=== PATIENT | female | born 1955 | race Caucasian/White ===

== ENCOUNTER 2016-03-15 21:28 | Emergency (ER) | payer OTHER ==
[~2016-03-15] VITALS: Ht 157.5 cm; Wt 55.9 kg
[~2016-03-15 21:28] MED LIST: AMOX-366 PO; ASPI-973 PO; CARB1TAB37 PO; CRB100TCR PO; CYCL10TA9 PO; ENTA200T PO; FAMO20TA4 PO; LAMO100T PO; LAMO150T2 PO; LORA-302 PO; LVCR25100 PO; MENT113G5 TP; NAPR375T4 PO; NITR0.4T SL; PRIM50TA PO; ROPI0.5T2 PO
[2016-03-15 21:39] VITALS: BP 110/66; PULSE 76; RESP 18; O2SAT 97
--- NOTE | 2016-03-15 21:58 | ED.REPORT ---
HPI-Extremity Problem Lower Date of Service Mar 15, 2016 ED Provider: Senia Mullins MD Pt is a 60 y/o female w/ a hx of Parkinson's disease, psychiatric illnesses, presenting to the ED via EMS c/o bilateral lower extremity cramping onset 1 week ago. She has experienced similar symptoms before but not at this severity. The pain is causing her to be weak and she believes she is a fall risk. She c/o associated left leg numbness. She denies nausea, vomiting, fever, chills, cough , dysuria, change in lower extremity edema, rash, speech change, vision change. She has been using Flexeril at home with no relief. Nursing Notes Stated Complaint: LEG CRAMPS Chief Complaint: General Complaint Nursing Notes Reviewed: Yes Allergies: Coded Allergies: fluphenazine (Verified Allergy, Mild, 09/18/15) Haloperidol Lactate (Verified Allergy, Unknown, 09/18/15) Phenothiazines (Verified Allergy, Unknown, 09/18/15) Sulfa (Sulfonamide Antibiotics) (Verified Allergy, Unknown, 09/18/15) haloperidol (Verified Allergy, Unknown, 09/18/15) thioridazine (Verified Allergy, Unknown, 09/18/15) thiothixene (Verified Allergy, Unknown, 09/18/15) Scheduled Amoxicillin/Clav K 875-125 mg (Augmentin 875-125 mg) 1 Each Tablet 1 TABLET PO BID Aspirin (Aspirin) 81 Mg Tablet 81 MG PO da Carbamazepine (Tegretol Xr) 100 Mg Tber 200 MG PO Q12H Carbidopa/Levodopa 25-100 mg (Sinemet 25-100 mg) 1 Each Tablet 1 TABLET PO DAILYWD Carbidopa/Levodopa ER 50-200 mg (Carbidopa/Levodopa ER 50-200 mg) 1 Each Tablet 1 TABLET PO TID In the at AM, noon and HS Entacapone (Comtan) 200 Mg Tablet 100 MG PO QID take with carbidopa and levodopa Famotidine (Famotidine) 20 Mg Tablet 20 MG PO BID Lamotrigine (Lamictal) 100 Mg Tablet 100 MG PO QAM Lamotrigine (Lamotrigine) 150 Mg Tablet 150 MG PO HS Primidone (Mysoline) 50 Mg Tablet 50 MG PO QID Ropinirole (Ropinirole) 0.5 Mg Tablet 0.5 MG PO TID Scheduled PRN Cyclobenzaprine (Cyclobenzaprine) 10 Mg Tablet 10 MG PO TID PRN PRN Spasm Cyclobenzaprine (Cyclobenzaprine) 10 Mg Tablet 10 MG PO TID PRN PRN Spasm Lorazepam (Ativan) 0.5 Mg Tablet 0.5 MG PO HS PRN PRN For Insomnia Menthol (Bengay) 113 Gm Gel..gram. 113 GM TP PRN For Pain Naproxen (Naproxen) 375 Mg Tablet.dr 375 MG PO BID PRN PRN For Pain Nitroglycerin SL (Nitrostat) 0.4 Mg Tab.subl 0.4 MG SL Q5MIN PRN PRN For Chest Pain General Time Seen by MD: 21:54 Chief Complaint Other (Bilateral leg cramping) Hx Obtained From: Patient, EMS Arrived By: Ambulance Onset Occurred: 1 week ago Symptom Duration: Since onset Location: : Leg left: Leg right Quality: Cramping Severity: Current: Moderate Severity: Maximum: Moderate Exacerbated by: Movement Recent Healthcare: Previous diagnosis Similar Sx Previous: Yes Past Medical History Past Medical History Multi-drug resistant Escherichia coli urinary tract infection February 2013 Drug-induced Parkinson disease. History of seizure disorder. Dyslipidemia. Depression/anxiety. Bipolar disorder. Chronic back pain, with narcotic seeking behavior. Posttraumatic stress disorder. Borderline personality disorder. -previous suicide attempts and manipulative behaviors History of transient ischemic attacks. Previous left occipital infarct Migraines. Anorexia. Alleged multiple sclerosis. Per Dr. Burks's records, this is not the case. She claims to have been diagnosed by a retired neurologist myocardial infarction Reports: Atrial fibrillation Past Surgical History Reports: , Tonsillectomy Family History Mother had depression Smoking History Former Smoker Social History She is . She currently lives alone, although she use to live in a detention. She used to live with her mom, but her mom now lives at the detention at [facility]. She has be discharged from [facility] in the past with concern for manipulative behaviors. She reports being disabled all of her life due to her epilepsy. She has a 30-year-old son who also has his own medical issues too. Quit smoking in 1972, and denies any alcohol use Alcohol Use: "Social" Drug Use: Denies drug use Other Social History: Poor social support, Homeless Ambulatory Status Wheelchair Review of Systems Constitutional: Denies: Chills, Fever Musculoskeletal: Reports: Extremity pain (bilat legs), Denies: Extremity swelling Skin: Denies Rash Neurologic: Reports: Numbness, Denies: Focal weakness, Slurred speech, Unable to speak, Vision change Complete sys rev & neg: except as marked. Respiratory: Denies: Non-productive cough, Shortness of breath Cardiovascular: Denies: Chest pain GI: Denies: Abdominal pain, Nausea, Vomiting Female: Denies: Dysuria Physical Exam Initial Vital Signs Vital Signs (First) Date Time Temp Pulse Resp B/P Pulse Ox O2 Delivery O2 Flow Rate FiO2 03/15/16 21:39 36.7 76 18 110/66 97 Room Air Initial VS: Reviewed, Vital signs normal Head / Eyes: Atraumatic, Normocephalic, PERRL ENT: Mucous membranes moist, Conjunctiva normal, No scleral icterus Neck: Supple, Full range of motion Respiratory: Breath sounds normal, Clear to auscultation, No respiratory distress Cardiovascular: Regular rate & rhythm, Heart sounds normal, Intact distal pulses Abdomen / GI: Soft, Non-tender, No guarding, No rebound, No distention Upper Extremities: Vascular intact, Neuro intact, No swelling, No tenderness Skin: Warm, Dry, No cyanosis Psychiatric: Mood/affect normal, Behavior normal, Normal thought content Lower Extremity / Pelvis / MS: Atraumatic, Inspection NL, Full range of motion , No swelling, Non-tender, No deformity, Neurologic intact, Vascular intact Neurologic: Oriented X3, Speech NL, No motor deficits, No sensory deficits, Memory NL Baseline tremor Interpretation & Diagnostics Lab Results Interpretation Result Diagram: 03/15/16224603/15/162246 Test 03/15/16 22:47 03/15/16 23:54 White Blood Count 3.3th/mm3 (3.8-10.1) Red Blood Count 3.71mil/mm3 (3.90-5.20) Hemoglobin 12.1g/dL (12.0-15.6) Hematocrit 37.1% (35.0-46.0) Mean Corpuscular Volume 100.0fL (81-100) Mean Corpuscular Hemoglobin 32.6pg (27.0-35.0) Mean Corpuscular Hemoglobin Concent 32.6% (32.0-37.0) Red Cell Distribution Width 11.8% (12.3-15.4) Platelet Count 308bil/L (150-400) Neutrophils (%) (Auto) 56.3% (40-74) Lymphocytes (%) (Auto) 28.6% (14-46) Monocytes (%) (Auto) 13.3% (4-12) Eosinophils (%) (Auto) 0.9% (0-5) Basophils (%) (Auto) 0.9% (0-3) Sodium Level 138mEq/L (134-144) Potassium Level 4.1mEq/L (3.5-5.2) Chloride Level 102mEq/L (97-108) Carbon Dioxide Level 26mmol/L (18-29) Blood Urea Nitrogen 23mg/dL (6-24) Creatinine 0.72mg/dL (0.57-1.00) Estimat Glomerular Filtration Rate 119mL/min (>59) Glucose Level 100mg/dL (60-99) Calcium Level 8.7mg/dL (8.5-10.1) Total Bilirubin 0.2mg/dL (0.0-1.2) Aspartate Amino Transf (AST/SGOT) 10U/L (0-50) Alanine Aminotransferase (ALT/SGPT) < 5U/L (0-32) Alkaline Phosphatase 61U/L (25-165) Total Protein 6.8g/dL (6.4-8.4) Albumin 4.2g/dL (3.4-5.0) Hold Benítez Top Tube Received (Received) Urine Color Yellow (YELLOW) Urine Appearance Clear (CLEAR,HAZY) Urine pH 7.5 (5.0-8.0) Urine Specific [place] 1.010 (1.003-1.035) Urine Protein Negativemg/dL (NEG,TRACE) Urine Glucose (UA) Negativemg/dL (NEGATIVE) Urine Ketones Negativemg/dL (NEGATIVE) Urine Occult Blood Negative (NEGATIVE) Urine Nitrite Negative (NEGATIVE) Urine Bilirubin Negative (NEGATIVE) Urine Urobilinogen Normalmg/dL (NORMAL) Urine Leukocyte Esterase Moderate (NEGATIVE) Urine RBC 0-2/hpf (0-2) Urine WBC 11-50/hpf (0-5) Urine Epithelial Cells Moderate/hpf (NONE-MOD) Urine Crystals None seen (NONE SEEN) Urine Bacteria Few/hpf (NONE-FEW) Urine Hyaline Casts None/lpf (NONE) Urine Granular Casts None seen (NONE SEEN) Urine Waxy Casts None seen (NONE SEEN) Urine Red Blood Cell Casts None seen (NONE SEEN) Urine White Blood Cell Casts None seen (NONE SEEN) Urine Mucus None seen (None Seen) Urine Trichomonas None seen (NONE SEEN) Urine Yeast None (NONE SEEN) Urinalysis Comment None Urine Culture Reflexed Indicated Re-Eval/Medical Decision Med Decision/Clinical Course 60-year-old female with past medical history of Parkinson's disease, MS, psychiatric disorder here with muscle cramping. Differential diagnosis includes but is not limited to drug seeking behavior versus electrolyte abnormality versus paresthesias versus neuropathy. Patient's CBC is remarkable for mild leukopenia, which appears to be patient's baseline. Her CMP is normal without evidence of electrolyte abnormality. During patient's stay, she was very demanding, asked me to come into the room several times for very menial tasks, and was rather abusive to the nurses in the department. She is also requesting that we admit her because caregivers at her home are unable to care for her completely. At this time, I have explained to her that that is not a reason for me to admit her to the hospital. She has been given Valium in the emergency department for her muscle spasm, and is amenable to discharge at this time with follow-up with her primary care physician. Re-Evaluation/Progress : Time of Eval: 23:59 Re-Evaluation/Progress Note: Pt rechecked. Informed pt of plan for treatment. Pt understands and agrees with plan for treatment. F/U and RTER warnings given. All questions addressed. Counseled Regarding: Diagnosis, Lab results, Need for follow-up, When/why to return to ED Discharge & Departure Disposition: Home Discharge Condition All VS Reviewed: Yes Condition: Stable Referrals: Afsaneh Tobar MD (PCP) Scribe Attestation Portions of this note were transcribed by Obie Cox. I, Dr. Mullins personally performed the history, physical exam and medical decision-making; I reviewed and confirmed the accuracy of the information in the transcribed note. Signed by Kristy Valdivia, 03/15/16 - [phone] copies to: Afsaneh Tobar MD, Rebecca A MD Mar 15, 2016 21:58 OBIE COX Mar 15, 2016 22:04
[2016-03-15 23:00] LABS: BASOPHILS % (AUTO) 0.9 % (0-3); EOSINOPHILS % (AUTO) 0.9 % (0-5); MONOCYTES % (AUTO) 13.3 % (4-12); Mean Corpuscular Hemoglobin 32.6 pg (27.0-35.0); NEUTROPHILS % (AUTO) 56.3 % (40-74); Platelet Count 308 bil/L (150-400)
[2016-03-16 00:27] LABS: APPEARANCE,URINE CLEAR (CLEAR,HAZY); COLOR,URINE YELLOW (YELLOW); OCCULT BLOOD,URINE NEGATIVE (NEGATIVE); PH,URINE 7.5 (5.0-8.0); UROBILINOGEN,URINE NORMAL (NORMAL)
[2016-03-16 00:32] VITALS: BP 99/68; PULSE 91; RESP 16; O2SAT 100
== END 2016-03-16 00:33 | disposition home or self-care (01) ==
LOC: SED 21:28
DX: R82.71 Bacteriuria (principal); I48.91 Unspecified atrial fibrillation; Z79.82 Long term (current) use of aspirin; Z87.891 Personal history of nicotine dependence; Z88.2 Allergy status to sulfonamides; Z88.8 Allergy status to other drugs, medicaments and biological substances; Z87.440 Personal history of urinary (tract) infections; Z86.19 Personal history of other infectious and parasitic diseases; Z86.73 Personal history of transient ischemic attack (TIA), and cerebral infarction without residual deficits
CPT/HCPCS: 36415; 80053; 81000; 85025; 87086; 96374; 96375; 99284; J3360

== ENCOUNTER 2016-04-09 15:25 | Emergency (ER) | payer OTHER ==
[~2016-04-09] VITALS: Ht 157.5 cm; Wt 56.8 kg
[2016-04-09 15:33] VITALS: BP 142/76; PULSE 82; RESP 18; O2SAT 93
--- NOTE | 2016-04-09 16:31 | DRSVH ---
PROCEDURE: X-RAY LEFT KNEE, ONE OR TWO VIEWS ([id number]) INDICATIONS: FALL TECHNIQUE: 2 views of the knee were acquired. COMPARISON: [facility], , KNEE 1 OR 2VW (LT), 02/14/2013, 13:26. FINDINGS: Bones: No fractures or dislocations. No suspicious bony lesions. Soft tissues: No joint effusion. No suspicious soft tissue calcifications. IMPRESSION: No visualized acute fracture or dislocation. However, if clinical concern and/or pain pe rsist, short interval imaging followup in 7-10 days is recommended, as occult injury cannot be defini tively excluded. Dictated by: Chantale Jarvis M.D. on 04/09/2016 at 16:29 Approved by: Chantale Jarvis M.D. on 04/09/2016 at 16:29
--- NOTE | 2016-04-09 17:43 | ED.REPORT ---
HPI-Trauma Minor / Fall Date of Service Apr 09, 2016 ED Provider: Magan Gr MD This is a 60 year old female presenting to the emergency department complaining of left knee pain that began just prior to arrival after a GLF. Reports diffuse myalgias. Denies headache, neck pain, change LOC, nausea, vomiting, or any other injuries at this time. Nursing Notes Stated Complaint: GENERAL PAIN Chief Complaint: General Complaint Nursing Notes Reviewed: Yes Allergies: Coded Allergies: fluphenazine (Verified Allergy, Mild, 09/18/15) Haloperidol Lactate (Verified Allergy, Unknown, 09/18/15) Phenothiazines (Verified Allergy, Unknown, 09/18/15) Sulfa (Sulfonamide Antibiotics) (Verified Allergy, Unknown, 09/18/15) haloperidol (Verified Allergy, Unknown, 09/18/15) thioridazine (Verified Allergy, Unknown, 09/18/15) thiothixene (Verified Allergy, Unknown, 09/18/15) Scheduled Amoxicillin/Clav K 875-125 mg (Augmentin 875-125 mg) 1 Each Tablet 1 TABLET PO BID Aspirin (Aspirin) 81 Mg Tablet 81 MG PO da Carbamazepine (Tegretol Xr) 100 Mg Tber 200 MG PO Q12H Carbidopa/Levodopa 25-100 mg (Sinemet 25-100 mg) 1 Each Tablet 1 TABLET PO DAILYWD Carbidopa/Levodopa ER 50-200 mg (Carbidopa/Levodopa ER 50-200 mg) 1 Each Tablet 1 TABLET PO TID In the at AM, noon and HS Entacapone (Comtan) 200 Mg Tablet 100 MG PO QID take with carbidopa and levodopa Famotidine (Famotidine) 20 Mg Tablet 20 MG PO BID Lamotrigine (Lamictal) 100 Mg Tablet 100 MG PO QAM Lamotrigine (Lamotrigine) 150 Mg Tablet 150 MG PO HS Primidone (Mysoline) 50 Mg Tablet 50 MG PO QID Ropinirole (Ropinirole) 0.5 Mg Tablet 0.5 MG PO TID Scheduled PRN Cyclobenzaprine (Cyclobenzaprine) 10 Mg Tablet 10 MG PO TID PRN PRN Spasm Cyclobenzaprine (Cyclobenzaprine) 10 Mg Tablet 10 MG PO TID PRN PRN Spasm Lorazepam (Ativan) 0.5 Mg Tablet 0.5 MG PO HS PRN PRN For Insomnia Menthol (Bengay) 113 Gm Gel..gram. 113 GM TP PRN For Pain Naproxen (Naproxen) 375 Mg Tablet.dr 375 MG PO BID PRN PRN For Pain Nitroglycerin SL (Nitrostat) 0.4 Mg Tab.subl 0.4 MG SL Q5MIN PRN PRN For Chest Pain General Time Seen by MD: 17:34 Chief Complaint Fall Hx Obtained From: Patient Arrived By: Walk-in Onset Occurred: Just prior to arrival Symptom Duration: Since onset Severity: Current: Mild Pertinent Negative: Pt denies other symptoms Recent Healthcare: No recent doctor visit, No recent hospitalization Similar Sx Previous: No Past Medical History Past Medical History Multi-drug resistant Escherichia coli urinary tract infection February 2013 Drug-induced Parkinson disease. History of seizure disorder. Dyslipidemia. Depression/anxiety. Bipolar disorder. Chronic back pain, with narcotic seeking behavior. Posttraumatic stress disorder. Borderline personality disorder. -previous suicide attempts and manipulative behaviors History of transient ischemic attacks. Previous left occipital infarct Migraines. Anorexia. Alleged multiple sclerosis. Per Dr. Burks's records, this is not the case. She claims to have been diagnosed by a retired neurologist myocardial infarction Reports: Atrial fibrillation Past Surgical History Reports: , Tonsillectomy Family History Mother had depression Smoking History Former Smoker Social History She is . She currently lives alone, although she use to live in a fdc. She used to live with her mom, but her mom now lives at the fdc at [facility]. She has be discharged from [facility] in the past with concern for manipulative behaviors. She reports being disabled all of her life due to her epilepsy. She has a 30-year-old son who also has his own medical issues too. Quit smoking in 1972, and denies any alcohol use Alcohol Use: "Social" Drug Use: Denies drug use Other Social History: Poor social support, Homeless Ambulatory Status Wheelchair Review of Systems Constitutional: Denies: Chills, Fever Musculoskeletal: Reports: Extremity pain Neurologic: Denies: Headache, Lightheaded, Numbness Complete sys rev & neg: except as marked. Physical Exam Initial Vital Signs Vital Signs (First) Date Time Temp Pulse Resp B/P Pulse Ox O2 Delivery O2 Flow Rate FiO2 04/09/16 15:33 37.1 82 18 142/76 93 Room Air Initial VS: Reviewed Head / Eyes: Atraumatic, Normocephalic, PERRL ENT: Mucous membranes moist, Conjunctiva normal, No scleral icterus Respiratory: Breath sounds normal, Clear to auscultation, No respiratory distress Cardiovascular: Regular rate & rhythm, Heart sounds normal, Intact distal pulses Abdomen / GI: Soft, Non-tender, No guarding, No rebound, No distention Extremities: Vascular intact, Neuro intact, No swelling, No tenderness Skin: Warm, Dry, No cyanosis Neurologic: Alert, Oriented, Nonfocal Psychiatric: Mood/affect normal, Behavior normal, Normal thought content General/Constitutional: Awake, Alert Neck: Full range of motion Lower Extremity / Pelvis / MS: Full range of motion, No swelling, Neurologic intact, Vascular intact Interpretation & Diagnostics Interpretation & Diagnostics: LEFT KNEE X-RAY IMPRESSION: No visualized acute fracture or dislocation. However, if clinical concern and/or pain persist, short interval imaging followup in 7-10 days is recommended, as occult injury cannot be definitively excluded. Dictated by: Chantale Jarvis M.D. on 04/09/2016 at 16:29 Approved by: Chantale Jarvis M.D. on 04/09/2016 at 16:29 Lab Results Interpretation Test 04/09/16 16:08 Hold Urine Received (Received) Re-Eval/Medical Decision Med Decision/Clinical Course 60-year-old female presented status post fall onto left knee. Her left knee x-ray is normal. She has no other acute complaints. Discharged home with return precautions. Counseled Regarding: Diagnosis, Lab results, Need for follow-up, When/why to return to ED Discharge & Departure Impression: Primary Impression: Knee pain, left Chronicity: acute Qualified Code: M25.562 - Pain in left knee Disposition: Home Discharge Condition All VS Reviewed: Yes Condition: Stable Additional Instructions: Follow-up with your primary care provider. Return to the emergency department for any new or worsening symptoms Referrals: Afsaneh Tobar MD (PCP) Scribe Attestation Portions of this note were transcribed by Dusty Stover. I, Dr. Gr personally performed the history, physical exam and medical decision-making; I reviewed and confirmed the accuracy of the information in the transcribed note. Signed by: alexus Ruiz. 04/09/2016, 17:00. Magan Gr MD Apr 09, 2016 17:42 DUSTY STOVER Apr 09, 2016 17:47
== END 2016-04-09 18:30 | disposition home or self-care (01) ==
LOC: SED 15:25
DX: M25.562 Pain in left knee (principal); W18.30XA Fall on same level, unspecified, initial encounter; Y93.89 Activity, other specified; Y92.9 Unspecified place or not applicable; Y99.8 Other external cause status; I25.2 Old myocardial infarction; Z86.73 Personal history of transient ischemic attack (TIA), and cerebral infarction without residual deficits; Z87.891 Personal history of nicotine dependence; Z86.59 Personal history of other mental and behavioral disorders; Z79.82 Long term (current) use of aspirin; Z88.2 Allergy status to sulfonamides; Z88.8 Allergy status to other drugs, medicaments and biological substances

== ENCOUNTER 2016-04-30 11:31 | Emergency (ER) | payer OTHER ==
[~2016-04-30] VITALS: Ht 157.5 cm; Wt 56.8 kg
[2016-04-30 11:37] VITALS: BP 119/67; PULSE 104; RESP 17; O2SAT 98
--- NOTE | 2016-04-30 12:32 | ED.REPORT ---
HPI-Trauma Minor / Fall Date of Service Apr 30, 2016 ED Provider: Dayne Guy MD Patient is a 60 year old female with a history of Parkinson's who presents to the ED via EMS from [facility] s/p a ground level fall from her bed today. She hit her head on a radiator and now presents with double vision and dizziness. Associated symptoms include R arm and shoulder pain. She denies bleeding, headache, numbness, or any other symptoms. Patient reports she is looking for a prescription for different pain medication since hers are "not working". When denied another prescription for pain medications she asked, "not even for a week?" Patient is very persistent about getting prescription pain medications. Nursing Notes Stated Complaint: GLF Chief Complaint: Multiple Trauma/Fall Nursing Notes Reviewed: Yes ([facility] not [facility]) Allergies: Coded Allergies: fluphenazine (Verified Allergy, Mild, 09/18/15) Haloperidol Lactate (Verified Allergy, Unknown, 09/18/15) Phenothiazines (Verified Allergy, Unknown, 09/18/15) Sulfa (Sulfonamide Antibiotics) (Verified Allergy, Unknown, 09/18/15) haloperidol (Verified Allergy, Unknown, 09/18/15) thioridazine (Verified Allergy, Unknown, 09/18/15) thiothixene (Verified Allergy, Unknown, 09/18/15) Scheduled Amoxicillin/Clav K 875-125 mg (Augmentin 875-125 mg) 1 Each Tablet 1 TABLET PO BID Aspirin (Aspirin) 81 Mg Tablet 81 MG PO da Carbamazepine (Tegretol Xr) 100 Mg Tber 200 MG PO Q12H Carbidopa/Levodopa 25-100 mg (Sinemet 25-100 mg) 1 Each Tablet 1 TABLET PO DAILYWD Carbidopa/Levodopa ER 50-200 mg (Carbidopa/Levodopa ER 50-200 mg) 1 Each Tablet 1 TABLET PO TID In the at AM, noon and HS Entacapone (Comtan) 200 Mg Tablet 100 MG PO QID take with carbidopa and levodopa Famotidine (Famotidine) 20 Mg Tablet 20 MG PO BID Lamotrigine (Lamictal) 100 Mg Tablet 100 MG PO QAM Lamotrigine (Lamotrigine) 150 Mg Tablet 150 MG PO HS Primidone (Mysoline) 50 Mg Tablet 50 MG PO QID Ropinirole (Ropinirole) 0.5 Mg Tablet 0.5 MG PO TID Scheduled PRN Cyclobenzaprine (Cyclobenzaprine) 10 Mg Tablet 10 MG PO TID PRN PRN Spasm Cyclobenzaprine (Cyclobenzaprine) 10 Mg Tablet 10 MG PO TID PRN PRN Spasm Lorazepam (Ativan) 0.5 Mg Tablet 0.5 MG PO HS PRN PRN For Insomnia Menthol (Bengay) 113 Gm Gel..gram. 113 GM TP PRN For Pain Naproxen (Naproxen) 375 Mg Tablet.dr 375 MG PO BID PRN PRN For Pain Nitroglycerin SL (Nitrostat) 0.4 Mg Tab.subl 0.4 MG SL Q5MIN PRN PRN For Chest Pain General Time Seen by MD: 12:03 Chief Complaint Fall Hx Obtained From: Patient Arrived By: Ambulance Past Medical History Past Medical History Multi-drug resistant Escherichia coli urinary tract infection February 2013 Drug-induced Parkinson disease. History of seizure disorder. Dyslipidemia. Depression/anxiety. Bipolar disorder. Chronic back pain, with narcotic seeking behavior. Posttraumatic stress disorder. Borderline personality disorder. -previous suicide attempts and manipulative behaviors History of transient ischemic attacks. Previous left occipital infarct Migraines. Anorexia. Alleged multiple sclerosis. Per Dr. Burks's records, this is not the case. She claims to have been diagnosed by a retired neurologist myocardial infarction Seizures Reports: Atrial fibrillation Past Surgical History Reports: , Tonsillectomy Family History Mother had depression Smoking History Former Smoker Social History She is . She currently lives alone, although she use to live in a assisted. She used to live with her mom, but her mom now lives at the assisted at [facility]. She has be discharged from [facility] in the past with concern for manipulative behaviors. She reports being disabled all of her life due to her epilepsy. She has a 30-year-old son who also has his own medical issues too. Quit smoking in 1972, and denies any alcohol use. Multiple previous suicide attempts. Alcohol Use: "Social" Drug Use: Denies drug use Other Social History: Poor social support, Homeless Ambulatory Status Wheelchair Review of Systems Eyes: Reports: Discharge bilateral Musculoskeletal: Reports: Extremity pain (R arm), Joint pain (R shoulder ) Neurologic: Reports: Dizziness, Denies: Headache, Numbness Complete sys rev & neg: except as marked. Physical Exam Initial Vital Signs Vital Signs (First) Date Time Temp Pulse Resp B/P Pulse Ox O2 Delivery O2 Flow Rate FiO2 04/30/16 11:37 36.9 104 17 119/67 98 Room Air Initial VS: Reviewed, Vital signs normal (heart rate 104) General/Constitutional: Awake, Alert, Well developed, Not toxic appearing Well known through multiple visits. Neck: Atraumatic, Supple Head / Eyes: Atraumatic, Normocephalic No hematoma, abraision, laceration, or bleeding on the scalp Respiratory / Chest: Breath sounds NL, Breath sounds = bilat, No respiratory distress Cardiovascular: Heart rate NL Abdomen: Soft, Non-tender Back: Atraumatic, Inspection NL, Non-tender Upper Extremity / MS: Full range of motion Minor bruise at R proximal humerous. No step off. Not tender over the AC joint. Preserved but sore ROM. Good radial pulse. Lower Extremity / Pelvis / MS: Full range of motion R lateral thigh bruise with intact internal and external rotation. Flexion and extention nL Neurologic: Oriented X3, Speech NL No focal deficits Interpretation & Diagnostics X-Ray Interpretation Xray Interpretation: IMPRESSION: No fracture Dictated by: Panchito Salas M.D. on 04/30/2016 at 13:32 Approved by: Panchito Salas M.D. on 04/30/2016 at 13:34 Study Performed: R humerus, 2 views X-Ray Ordered: Humerus right Interpretation / Wet Read by: Interpret - Radiologist CT Head Interpretation CT BRAIN: IMPRESSION: No acute intracranial process Dictated by: Panchito Salas M.D. on 04/30/2016 at 14:02 Approved by: Panchito Salas M.D. on 04/30/2016 at 14:03 Study: Head CT no contrast Interpretation / Wet Read by: Interpret - Radiologist Re-Eval/Medical Decision Med Decision/Clinical Course This is a 60-year-old female well-known to me from multiple previous visits. She presents with a chief complaint she rolled out of bed and fell and hit her head, right side of her head is sore, she landed on her right arm and her right arm is sore. She is very demanding individual with an extensive history of a personality disorder. Interestingly the immediate focus of her visit is repeated requests for pain medications. On exam she is awake alert answering questions. There is no overt bruising abrasions or head wounds evident on exam. She does have a contusion on the upper arm or ports is sore-although there is not clinical evidence of a raghu fracture dislocation. She is a minor bruise in the right thigh, but is normal range of motion no clinical evidence of fracture. CT the head, x-ray of the arm is negative. I did provide a dose of Toradol, a dose of Tylenol, and an patient's routine dose of Ultram. At each interval the patient asked for additional narcotics, but I do not think those are appropriate. The patient is prescribed Tylenol, prescribed diclofenac, and prescribed tramadol already. I did FEN give a dose of the patient's Flexeril as well. But I do not think that additional opiates or change in the pain medication regimen-particularly given the absence of objective medical indications-is appropriate. Explained to the patient. She is being discharged back to the nursing facility in stable condition Source of Hx: Old records Re-Evaluation/Progress : Time of Eval: 14:32 Re-Evaluation/Progress Note: Discussed imaging results and plan for discharge. Patient understands and agrees with plan. All questions addressed at this time. Counseled Regarding: Diagnosis, Lab results, Need for follow-up, When/why to return to ED Discharge & Departure Impression: Primary Impression: Fall from ground level Additional Impressions: Blunt head trauma Encounter type: initial encounter Qualified Code: S09.8XXA - Other specified injuries of head, initial encounter Contusion of right arm Encounter type: initial encounter Qualified Code: S40.021A - Contusion of right upper arm, initial encounter Disposition: Home Discharge Condition All VS Reviewed: Yes Condition: Stable Additional Instructions: 1. The CT scan of the head did not reveal any signs of trauma to the brain, or skull injury. 2. Your right arm x-ray was normal with no findings of a fracture. 3. I do not recommend increasing her pain medications or using further narcotics these medications can actually worsen the situation and increase her risk of falls. You should continue your prescribed medicines-take your diclofenac, take the Tylenol, and take that when necessary tramadol that you are currently prescribed. 4. You received a dose of Toradol, a dose of Tylenol, and a dose of tramadol in the department. 5. Continue current care 6. Follow-up with Dr. Tobar as needed Referrals: Afsaneh Tobar MD (PCP) Scribe Attestation Portions of this note were transcribed by Shahida Laureano. I, Dr. Guy personally performed the history, physical exam and medical decision-making; I reviewed and confirmed the accuracy of the information in the transcribed note. Signed by: Shahida Laureano 04/30/16, 1432 copies to: Afsaneh Tobar MD, Matthew F MD Apr 30, 2016 12:32 SHAHIDA LAUREANO Apr 30, 2016 12:38
--- NOTE | 2016-04-30 13:36 | DRSVH ---
PROCEDURE: X-RAY RIGHT HUMERUS, MINIMUM TWO VIEWS ([id number]) INDICATIONS: RIGHT UPPER EXTREMITY pain TECHNIQUE: 2 views of the humerus were acquired. COMPARISON: [facility], CR, XR HUMERUS 2VW RT, 02/21/2015, 12:45. FINDINGS: Bones: No fractures or dislocations. No suspicious bony lesions. Mild AC joint degeneration Soft tissues: No suspicious soft tissue calcifications. IMPRESSION: No fracture Dictated by: Panchito Salas M.D. on 04/30/2016 at 13:32 Approved by: Panchito Salas M.D. on 04/30/2016 at 13:34
--- NOTE | 2016-04-30 14:05 | DRSVH ---
PROCEDURE: CT BRAIN WITHOUT CONTRAST ([id number]) INDICATIONS: Trauma GOOD TECHNIQUE: Noncontrast 4.5 mm thick angled axial sections acquired from the foramen magnum to the vertex, with c oronal reformats. COMPARISON: [facility], CT, CT BRAIN WO CON, 09/18/2015, 18:00. FINDINGS: Image quality: Excellent. CSF spaces: Basal cisterns are patent. No extra-axial fluid collections. The ventricles are symmet radha in size and shape. Brain: No intracranial bleeds or masses. There is cerebral volume loss for age, with resultant vent ricular and sulcal prominence. There are periventricular and deep white matter chronic small vessel ischemic changes. There is intracranial internal carotid artery atherosclerosis. Skull and face: Calvarium and visualized facial bones appear intact, without suspicious lesions. Sinuses: Visualized sinuses and mastoids are clear. IMPRESSION: No acute intracranial process Dictated by: Panchito Salas M.D. on 04/30/2016 at 14:02 Approved by: Panchito Salas M.D. on 04/30/2016 at 14:03
== END 2016-04-30 15:30 | disposition home or self-care (01) ==
LOC: EDBD 11:31 → SED 11:31
DX: S09.8XXA Other specified injuries of head, initial encounter (principal); S40.021A Contusion of right upper arm, initial encounter; W06.XXXA Fall from bed, initial encounter; Y93.89 Activity, other specified; Y99.8 Other external cause status; Y92.122 Bedroom in nursing home as the place of occurrence of the external cause; I25.2 Old myocardial infarction; R56.9 Unspecified convulsions; I48.91 Unspecified atrial fibrillation; G20 Parkinson's disease; E78.5 Hyperlipidemia, unspecified; G89.29 Other chronic pain; Z87.891 Personal history of nicotine dependence; Z79.82 Long term (current) use of aspirin; Z88.2 Allergy status to sulfonamides; Z88.8 Allergy status to other drugs, medicaments and biological substances

== ENCOUNTER 2016-05-10 04:41 | Emergency (ER) | payer OTHER ==
[2016-05-10 04:44] VITALS: BP 107/73; PULSE 99; RESP 18; O2SAT 98
[2016-05-10 05:31] LABS: APPEARANCE,URINE CLEAR (CLEAR,HAZY); COLOR,URINE YELLOW (YELLOW); OCCULT BLOOD,URINE NEGATIVE (NEGATIVE); UROBILINOGEN,URINE NORMAL (NORMAL)
--- NOTE | 2016-05-10 06:18 | ED.REPORT ---
HPI-General Illness Date of Service May 10, 2016 ED Provider: Trevon Hicks MD 60 year old female with a history of chronic back pain with narcotic seeking behavior, drug-induced Parkinson disease, borderline personality disorder, and PTSD presents to the ER via EMS from [facility] assisted living facility due to right hip pain and loss of sensation of the lower extremities status post mechanical ground level fall while transferring from her bed to a commode, requesting admission. She also reports falling last week, with residual left forearm pain. Patient denies any head/neck trauma, LOC, or other injuries secondary to the falls. Nursing notes indicate that the patient was recently diagnosed with UTI and is currently on a course of Bactrim. Urine culture from March 15, 2015: No growth. Nursing Notes Stated Complaint: CONFUSION Chief Complaint: General Complaint Nursing Notes Reviewed: Yes Allergies: Coded Allergies: fluphenazine (Verified Allergy, Mild, 09/18/15) Haloperidol Lactate (Verified Allergy, Unknown, 09/18/15) Phenothiazines (Verified Allergy, Unknown, 09/18/15) Sulfa (Sulfonamide Antibiotics) (Verified Allergy, Unknown, 09/18/15) haloperidol (Verified Allergy, Unknown, 09/18/15) thioridazine (Verified Allergy, Unknown, 09/18/15) thiothixene (Verified Allergy, Unknown, 09/18/15) Scheduled Amoxicillin/Clav K 875-125 mg (Augmentin 875-125 mg) 1 Each Tablet 1 TABLET PO BID Aspirin (Aspirin) 81 Mg Tablet 81 MG PO da Carbamazepine (Tegretol Xr) 100 Mg Tber 200 MG PO Q12H Carbidopa/Levodopa 25-100 mg (Sinemet 25-100 mg) 1 Each Tablet 1 TABLET PO DAILYWD Carbidopa/Levodopa ER 50-200 mg (Carbidopa/Levodopa ER 50-200 mg) 1 Each Tablet 1 TABLET PO TID In the at AM, noon and HS Entacapone (Comtan) 200 Mg Tablet 100 MG PO QID take with carbidopa and levodopa Famotidine (Famotidine) 20 Mg Tablet 20 MG PO BID Lamotrigine (Lamictal) 100 Mg Tablet 100 MG PO QAM Lamotrigine (Lamotrigine) 150 Mg Tablet 150 MG PO HS Primidone (Mysoline) 50 Mg Tablet 50 MG PO QID Ropinirole (Ropinirole) 0.5 Mg Tablet 0.5 MG PO TID Scheduled PRN Cyclobenzaprine (Cyclobenzaprine) 10 Mg Tablet 10 MG PO TID PRN PRN Spasm Cyclobenzaprine (Cyclobenzaprine) 10 Mg Tablet 10 MG PO TID PRN PRN Spasm Lorazepam (Ativan) 0.5 Mg Tablet 0.5 MG PO HS PRN PRN For Insomnia Menthol (Bengay) 113 Gm Gel..gram. 113 GM TP PRN For Pain Naproxen (Naproxen) 375 Mg Tablet.dr 375 MG PO BID PRN PRN For Pain Nitroglycerin SL (Nitrostat) 0.4 Mg Tab.subl 0.4 MG SL Q5MIN PRN PRN For Chest Pain General Time Seen by MD: 06:02 Transferred From: correction Chief Complaint Other (Fall, Right Hip Pain) Hx Obtained From: Patient Arrived By: Ambulance Sudden in Onset?: No Onset Occurred: Just prior to arrival Symptom Duration: Since onset Caused by: Accidental, Fall on ground Context: Occurred at: Home injury Location: : Hip right Quality: Painful Severity: Current: Moderate Severity: Maximum: Moderate Associated with: Reports: Numb extremities, Denies: Headache, Loss of consciousness, Neck pain Pertinent Negative: Pt denies other symptoms Past Medical History Past Medical History Multi-drug resistant Escherichia coli urinary tract infection February 2013 Drug-induced Parkinson disease. History of seizure disorder. Dyslipidemia. Depression/anxiety. Bipolar disorder. Chronic back pain, with narcotic seeking behavior. Posttraumatic stress disorder. Borderline personality disorder. -previous suicide attempts and manipulative behaviors History of transient ischemic attacks. Previous left occipital infarct Migraines. Anorexia. Alleged multiple sclerosis. Per Dr. Burks's records, this is not the case. She claims to have been diagnosed by a retired neurologist myocardial infarction Seizures Reports: Atrial fibrillation Past Surgical History Reports: , Tonsillectomy Family History Mother had depression Smoking History Former Smoker Social History She is . She currently lives alone, although she use to live in a detention. She used to live with her mom, but her mom now lives at the detention at [facility]. She has be discharged from [facility] in the past with concern for manipulative behaviors. She reports being disabled all of her life due to her epilepsy. She has a 30-year-old son who also has his own medical issues too. Quit smoking in 1972, and denies any alcohol use. Multiple previous suicide attempts. Alcohol Use: "Social" Drug Use: Denies drug use Other Social History: Poor social support, Homeless Ambulatory Status Wheelchair Review of Systems Full Review of Systems Musculoskeletal: Reports: Joint pain (Right Hip), Denies: Back pain, Lumbar pain, Neck pain, Thoracic pain Neurologic: Reports: Numbness (Lower Extremities), Denies: Headache, Syncope Complete sys rev & neg: except as marked. Physical Exam Vital Signs Vital Signs Date Time Temp Pulse Resp B/P Pulse Ox O2 Delivery O2 Flow Rate FiO2 05/10/16 10:42 101 18 99/57 96 Room Air 05/10/16 04:44 36.9 99 18 107/73 98 Room Air Initial VS: Reviewed Head / Eyes: Atraumatic, Normocephalic Neck: Supple, Non-tender, Full range of motion Abdomen / GI: Soft, Non-tender, No guarding, No rebound, No distention Skin: Warm, Dry, No cyanosis Neurologic: Alert, Oriented, Nonfocal General/Constitutional: Awake, Alert, Well developed, Well nourished Respiratory / Chest: Breath sounds NL, No respiratory distress, No rales, No rhonchi, No wheezing Cardiovascular: Heart rate NL, Regular rhythm, Heart sounds NL, Cap refill not delayed, Peripheral circulation NL Upper Extremities Upper Extremity / MS: No swelling, No deformity, Neurologic intact, Vascular intact Good external rotation of shoulders, bilaterally. Large bruise overlying the dorsal left forearm. Lower Extremity / Pelvis / MS: Full range of motion, Vascular intact Right Hip: Positive: Tenderness present... (Greater trochanter) Interpretation & Diagnostics Lab Results Interpretation Result Diagram: 05/10/16 1041 05/10/16 1041 Test 05/10/16 05:07 05/10/16 10:41 Urine Color Yellow (YELLOW) Urine Appearance Clear (CLEAR,HAZY) Urine pH 6.0 (5.0-8.0) Urine Specific [place] 1.010 (1.003-1.035) Urine Protein Negativemg/dL (NEG,TRACE) Urine Glucose (UA) Negativemg/dL (NEGATIVE) Urine Ketones Negativemg/dL (NEGATIVE) Urine Occult Blood Negative (NEGATIVE) Urine Nitrite Negative (NEGATIVE) Urine Bilirubin Negative (NEGATIVE) Urine Urobilinogen Normalmg/dL (NORMAL) Urine Leukocyte Esterase Negative (NEGATIVE) Urine RBC 0-2/hpf (0-2) Urine WBC 0-5/hpf (0-5) Urine Epithelial Cells Few/hpf (NONE-MOD) Urine Crystals None seen (NONE SEEN) Urine Bacteria None/hpf (NONE-FEW) Urine Hyaline Casts None/lpf (NONE) Urine Granular Casts None seen (NONE SEEN) Urine Waxy Casts None seen (NONE SEEN) Urine Red Blood Cell Casts None seen (NONE SEEN) Urine White Blood Cell Casts None seen (NONE SEEN) Urine Mucus None seen (None Seen) Urine Trichomonas None seen (NONE SEEN) Urine Yeast None (NONE SEEN) Urine Culture Reflexed Not indicated White Blood Count 4.3th/mm3 (3.8-10.1) Red Blood Count 3.78mil/mm3 (3.90-5.20) Hemoglobin 12.2g/dL (12.0-15.6) Hematocrit 37.7% (35.0-46.0) Mean Corpuscular Volume 99.7fL (81-100) Mean Corpuscular Hemoglobin 32.3pg (27.0-35.0) Mean Corpuscular Hemoglobin Concent 32.4% (32.0-37.0) Red Cell Distribution Width 11.9% (12.3-15.4) Platelet Count 381bil/L (150-400) Neutrophils (%) (Auto) 49.9% (40-74) Lymphocytes (%) (Auto) 34.9% (14-46) Monocytes (%) (Auto) 10.8% (4-12) Eosinophils (%) (Auto) 2.3% (0-5) Basophils (%) (Auto) 1.6% (0-3) Sodium Level 137mEq/L (134-144) Potassium Level 5.0mEq/L (3.5-5.2) Chloride Level 101mEq/L (97-108) Carbon Dioxide Level 23mmol/L (18-29) Blood Urea Nitrogen 16mg/dL (6-24) Creatinine 0.82mg/dL (0.57-1.00) Estimat Glomerular Filtration Rate 102mL/min (>59) Glucose Level 106mg/dL (60-99) Calcium Level 8.5mg/dL (8.5-10.1) Total Bilirubin 0.2mg/dL (0.0-1.2) Aspartate Amino Transf (AST/SGOT) 14U/L (0-50) Alanine Aminotransferase (ALT/SGPT) 5U/L (0-32) Alkaline Phosphatase 67U/L (25-165) Total Protein 6.0g/dL (6.4-8.4) Albumin 3.9g/dL (3.4-5.0) Re-Eval/Medical Decision Med Decision/Clinical Course The patient is not cooperative with physical therapy assessment and evaluation and her lack of participation is inconsistent with her ability to move to the commode with nursing assistance. Social work is attempting to have her placed in a higher level of care but if this fails she will go back to [facility]. Source of Hx: Old records Time of Eval: 09:57 Re-Evaluation/Progress Note: Raul Piper, director of patient's assisted living facility is now present in the department. He states that the patient will not be able to return to their facility. Time of Eval: 10:25 Re-Evaluation/Progress Note: Patient is tearful. Updated patient on the plan of care. Discussed conversation with Raul Piper and plan to discharge back to her assisted living facility. Consultation : Call Returned at: 14:29 Note: Called Hina, patient's sister, to update her on the plan of care. Discharge & Departure Shift Change Sign-Out Patient Care Transferred: Yes Discussed Complaint(s): Yes Primary Impression: Acute situational disturbance Discharge Condition All VS Reviewed: Yes Referrals: Afsaneh Tobar MD (PCP) Care Transferred to: Dr. Medeiros Care Transferred at: 15:00 Kristy Attestation Portions of this note were transcribed by Donal Rogel. I, Dr. Hicks, personally performed the history, physical exam and medical decision-making; I reviewed and confirmed the accuracy of the information in the transcribed note. Signed by: Kristy Austin, 05/10/2016 and 14:34 copies to: Afsaneh Tobar MD, Kirk H MD May 10, 2016 06:18 DONAL ROGEL May 10, 2016 06:26
[2016-05-10 10:42] VITALS: BP 99/57; PULSE 101; RESP 18; O2SAT 96
[2016-05-10 10:52] LABS: BASOPHILS % (AUTO) 1.6 % (0-3); EOSINOPHILS % (AUTO) 2.3 % (0-5); MONOCYTES % (AUTO) 10.8 % (4-12); Mean Corpuscular Hemoglobin 32.3 pg (27.0-35.0); Mean Corpuscular Volume 99.7 fL (81-100); NEUTROPHILS % (AUTO) 49.9 % (40-74); Platelet Count 381 bil/L (150-400)
--- NOTE | 2016-05-10 12:08 | NUR ---
[facility] per CONTINUOUS MINING MACHINE OPERATOR. Patient comes from [facility].
[2016-05-10 15:10] VITALS: BP 115/81; PULSE 71; RESP 17; O2SAT 91
--- NOTE | 2016-05-11 09:11 | NUR ---
Late entry note from 05/11/16: ED VEGETABLE INSPECTOR note: D/A: Pt is a 60 year old female with parkinson's disease and previous mental health treatment who presents to the ED for confusion and evaluation for UTI. Pt had been medically cleared when staff at her [facility], [facility], reported that they felt she required higher level of care. VEGETABLE INSPECTOR discussed with ED MD and biology specialist and referral was made to [facility], however ultimately as pt was considered a fall risk and required a sitter she was unable to be evaluated. VEGETABLE INSPECTOR staffed pt with VEGETABLE INSPECTOR mill platform supervisor and as pt was sent for medical complaint and she has been medically cleared she would be discharged back to her residence. VEGETABLE INSPECTOR also spoke with pt's coordinated care case maker, Stacy Oneill, who will assist in placement as needed. P: Pt medically cleared and higher level of care was pursued but unfortunately unavailable today. VEGETABLE INSPECTOR staffed pt with ED MD who is in agreement with discharge back to her current residence. KURTIS Frazier Addendum: 05/11/16 at 0915 by FELIZ CHRISTINA SS Correction, Previous note was late entry from 05/10/16 KURTIS Frazier
== END 2016-05-10 17:18 | disposition home or self-care (01) ==
LOC: SED 04:41
DX: F43.0 Acute stress reaction (principal); M25.551 Pain in right hip; W18.30XA Fall on same level, unspecified, initial encounter; Y93.89 Activity, other specified; Y92.098 Other place in other non-institutional residence as the place of occurrence of the external cause; Y99.8 Other external cause status; M79.632 Pain in left forearm; I48.91 Unspecified atrial fibrillation; G21.19 Other drug induced secondary parkinsonism; F31.9 Bipolar disorder, unspecified; Z79.82 Long term (current) use of aspirin; Z87.891 Personal history of nicotine dependence; Z88.2 Allergy status to sulfonamides; Z88.8 Allergy status to other drugs, medicaments and biological substances

== ENCOUNTER 2016-05-17 14:01 | Emergency (ER) | payer OTHER ==
[~2016-05-17] VITALS: Ht 157.5 cm; Wt 59.1 kg
[2016-05-17 14:13] VITALS: BP 101/60; PULSE 103; RESP 16; O2SAT 100
--- NOTE | 2016-05-17 17:11 | ED.REPORT ---
HPI-General Illness Date of Service May 17, 2016 ED Provider: Marky Davidson PA-C This 60-year-old female with a history of Parkinson's disease chief complaint of back spasms. She states that she came to the emergency department because "they cannot take care of me where I am living." [facility] over 25 residents. She feels she needs more personal care. She states she is unable to walk to the bathroom herself and has to crawl. She is a resident at [facility]. Discussion with our social media campaign manager reveals that she was dropped off by a employee of her [facility] who stated that they will not take her back because of behavior. She is no longer welcome there. This is thought to be against state housing laws. Social work is attempting to make arrangements for her to return to [facility] until new, suitable housing can be obtained. Nursing Notes Stated Complaint: BACK SPASM Chief Complaint: Back Pain or Injury Nursing Notes Reviewed: Yes Allergies: Coded Allergies: fluphenazine (Verified Allergy, Mild, 05/17/16) Haloperidol Lactate (Verified Allergy, Unknown, 05/17/16) Phenothiazines (Verified Allergy, Unknown, 05/17/16) Sulfa (Sulfonamide Antibiotics) (Verified Allergy, Unknown, 05/17/16) haloperidol (Verified Allergy, Unknown, 05/17/16) thioridazine (Verified Allergy, Unknown, 05/17/16) thiothixene (Verified Allergy, Unknown, 05/17/16) Scheduled Amoxicillin/Clav K 875-125 mg (Augmentin 875-125 mg) 1 Each Tablet 1 TABLET PO BID Aspirin (Aspirin) 81 Mg Tablet 81 MG PO da Carbamazepine (Tegretol Xr) 100 Mg Tber 200 MG PO Q12H Carbidopa/Levodopa 25-100 mg (Sinemet 25-100 mg) 1 Each Tablet 1 TABLET PO DAILYWD Carbidopa/Levodopa ER 50-200 mg (Carbidopa/Levodopa ER 50-200 mg) 1 Each Tablet 1 TABLET PO TID In the at AM, noon and HS Entacapone (Comtan) 200 Mg Tablet 100 MG PO QID take with carbidopa and levodopa Famotidine (Famotidine) 20 Mg Tablet 20 MG PO BID Lamotrigine (Lamictal) 100 Mg Tablet 100 MG PO QAM Lamotrigine (Lamotrigine) 150 Mg Tablet 150 MG PO HS Primidone (Mysoline) 50 Mg Tablet 50 MG PO QID Ropinirole (Ropinirole) 0.5 Mg Tablet 0.5 MG PO TID Scheduled PRN Cyclobenzaprine (Cyclobenzaprine) 10 Mg Tablet 10 MG PO TID PRN PRN Spasm Cyclobenzaprine (Cyclobenzaprine) 10 Mg Tablet 10 MG PO TID PRN PRN Spasm Lorazepam (Ativan) 0.5 Mg Tablet 0.5 MG PO HS PRN PRN For Insomnia Menthol (Bengay) 113 Gm Gel..gram. 113 GM TP PRN For Pain Naproxen (Naproxen) 375 Mg Tablet.dr 375 MG PO BID PRN PRN For Pain Nitroglycerin SL (Nitrostat) 0.4 Mg Tab.subl 0.4 MG SL Q5MIN PRN PRN For Chest Pain General Time Seen by MD: 16:45 Chief Complaint Back pain Past Medical History Past Medical History Multi-drug resistant Escherichia coli urinary tract infection February 2013 Drug-induced Parkinson disease. History of seizure disorder. Dyslipidemia. Depression/anxiety. Bipolar disorder. Chronic back pain, with narcotic seeking behavior. Posttraumatic stress disorder. Borderline personality disorder. -previous suicide attempts and manipulative behaviors History of transient ischemic attacks. Previous left occipital infarct Migraines. Anorexia. Alleged multiple sclerosis. Per Dr. Burks's records, this is not the case. She claims to have been diagnosed by a retired neurologist myocardial infarction Seizures Reports: Atrial fibrillation Past Surgical History Reports: , Tonsillectomy Family History Mother had depression Smoking History Former Smoker Social History She is . She currently lives alone, although she use to live in a intermediate. She used to live with her mom, but her mom now lives at the intermediate at [facility]. She has be discharged from [facility] in the past with concern for manipulative behaviors. She reports being disabled all of her life due to her epilepsy. She has a 30-year-old son who also has his own medical issues too. Quit smoking in 1972, and denies any alcohol use. Multiple previous suicide attempts. Alcohol Use: "Social" Drug Use: Denies drug use Other Social History: Poor social support, Homeless Ambulatory Status Wheelchair Review of Systems General: Denies fever, chills, malaise. HEENT: Denies congestion, headache, sore throat. Respiratory: Denies dyspnea, cough, shortness of breath, wheezing. Cardiovascular: Denies chest pain, palpitations. Gastrointestinal: Denies vomiting, diarrhea, abdominal pain. Genitourinary: Denies frequency, urgency, dysuria, hematuria. Otherwise as noted in HPI. Physical Exam General: Frail, tremulous woman seated in wheelchair. Head: Atraumatic, normocephalic. Eyes: No scleral icterus or injection. No discharge. Vision grossly intact. ENT: Voice clear, hearing grossly intact. Respiratory: Regular rate and rhythm. Breath sounds present, clear to auscultation and equal bilaterally. No respiratory distress. No increased work of breathing, speaks in complete sentences. Cardiovascular: Regular rate and rhythm, without murmur, gallop or rub. No pedal edema. Gastrointestinal: Abdomen flat and non-tender without guarding or rebound. Bowel sounds normoactive. Skin: Warm and dry. Neurological: Tremulous. Psychological: Alert and oriented. Speech appropriate, linear and logical. Vital Signs Vital Signs Date Time Temp Pulse Resp B/P Pulse Ox O2 Delivery O2 Flow Rate FiO2 05/19/16 14:02 36.4 65 14 84/59 100 Room Air 05/19/16 10:37 65 14 84/59 100 Room Air 05/19/16 06:20 36.4 99 18 116/82 99 Room Air 05/18/16 05:32 36.9 68 16 108/72 98 Room Air 05/17/16 19:11 36.9 97 16 108/69 99 Room Air 05/17/16 14:13 37.0 103 16 101/60 100 Room Air Initial VS: Reviewed, Vital signs normal Re-Eval/Medical Decision Med Decision/Clinical Course 60-year-old dropped off here by staff [facility] her current [facility], reportedly because she is unmanageable by them. Awaits social service resolution of the current dilemma, as she does not meet admission criteria and will need placement either at her original place, or a new place. Time of Eval: 20:06 Re-Evaluation/Progress Note: Distributed home medications. Discharge & Departure Shift Change Sign-Out Patient Care Transferred: Yes (Dr. Doty) Discussed Complaint(s): Yes Primary Impression: Low back pain Additional Impressions: Parkinsonism Borderline personality disorder Social problem Referrals: Afsaneh Tobar MD (PCP) Care Transferred to: Signed out to Dr. Doty on 05/17/2016 at 21:[address] Gr on 05/18/2016 at 06:00, May 18 Signed out to Marky Davidson 05/18/16 at 1800. Signed out to Dr. Doty at 2100. Signed out to Dr. Lg Doty at 0600, May 19. EDSupervising Provider for APC: Magan Gr MD Attending Statement Patient signed out to me my Dr Jamie Doty. Stable throughout day. POLST completed. Script for home meds written for 30 day supply for outpatient facility. To outpatient assisted living tomorrow. Signed out shift change back to ENRRIQUE Davidson who saw patient yesterday. Marky Davidson PA-C May 17, 2016 17:11 Justus Doty MD May 18, 2016 02:17 CHARLES GUSTAFSON May 18, 2016 05:54 Magan Gr MD May 18, 2016 18:08
[2016-05-17 19:11] VITALS: BP 108/69; PULSE 97; RESP 16; O2SAT 99
[2016-05-17] MEDS ORDERED: lamoTRIgine 100 mg Tablet PO ONE (20:05)
[2016-05-17] MEDS ORDERED: carBAMazepine 200 mg Tablet PO ONE (20:05)
[2016-05-17] MEDS ORDERED: Carbidopa-Levodopa 25-250 mg Tablet PO ONE (21:20)
[2016-05-17] MEDS ORDERED: Carbidopa-Levodopa 50-200 mg ER12 Tablet PO ONE (22:00)
[2016-05-18 05:32] VITALS: BP 108/72; PULSE 68; RESP 16; O2SAT 98
[2016-05-18] MEDS: lamoTRIgine 100 mg Tablet PO SCH ×2 (06:19→21:46)
[2016-05-18] MEDS: Carbidopa-Levodopa 50-200 mg ER12 Tablet PO SCH ×2 (06:20→20:30)
[2016-05-18] MEDS ORDERED: carBAMazepine 200 mg Tablet PO SCH (08:30)
[2016-05-18] MEDS ORDERED: Carbidopa-Levodopa 50-200 mg ER12 Tablet PO ONE (12:10)
--- NOTE | 2016-05-18 18:02 | PCM.EDPN ---
ED Note Date of Service May 18, 2016 ED Attending Statement Patient accepted from Dr Jamie Doty. Patient stable. POLST completed. Wrote scripts for her home meds one month supply for outpatient assisted living facility - she will be transferred there tomorrow. Magan Gr MD May 18, 2016 18:02
[2016-05-18] MEDS: carBAMazepine 200 mg Tablet PO SCH (20:50)
[2016-05-18] MEDS: Entacapone 200 mg Tablet PO SCH (21:59)
[2016-05-19] MEDS: Entacapone 200 mg Tablet PO SCH ×2 (05:44→11:56)
[2016-05-19 06:20] VITALS: BP 116/82; PULSE 99; RESP 18; O2SAT 99
[2016-05-19] MEDS: lamoTRIgine 100 mg Tablet PO SCH (09:59)
[2016-05-19] MEDS: carBAMazepine 200 mg Tablet PO SCH (09:59)
[2016-05-19] MEDS: Carbidopa-Levodopa 50-200 mg ER12 Tablet PO SCH (10:02)
[2016-05-19 10:37] VITALS: BP 84/59; PULSE 65; RESP 14; O2SAT 100
[2016-05-19 14:02] VITALS: BP 84/59; PULSE 65; RESP 14; O2SAT 100
== END 2016-05-19 14:03 | disposition home or self-care (01) ==
LOC: EDBD 14:01 → EDUNIT# 14:01 → SED 14:01
DX: M54.5 Low back pain (principal); G20 Parkinson's disease; F60.3 Borderline personality disorder; G40.909 Epilepsy, unspecified, not intractable, without status epilepticus; E78.5 Hyperlipidemia, unspecified; I48.91 Unspecified atrial fibrillation; I25.2 Old myocardial infarction; Z60.9 Problem related to social environment, unspecified; Z87.440 Personal history of urinary (tract) infections; Z86.73 Personal history of transient ischemic attack (TIA), and cerebral infarction without residual deficits; Z87.891 Personal history of nicotine dependence; Z59.0 Homelessness; Z79.82 Long term (current) use of aspirin; Z88.8 Allergy status to other drugs, medicaments and biological substances; Z88.2 Allergy status to sulfonamides